=== PATIENT | male | born 1935 | race Caucasian/White ===

== ENCOUNTER 2018-12-16 08:29 | Observation (INO) | payer OTHER, MEDICAID ==
[~2018-12-16] VITALS: Ht 177.8 cm; Wt 90.7 kg
[2018-12-16 08:35] VITALS: BP_SYST 66
--- NOTE | 2018-12-16 08:35 | NUR ---
Patient to ER bed to gown for evaluation. Side rails up.
--- NOTE | 2018-12-16 08:38 | NUR ---
ER Dr. Lopez at bedside examining patient.
[2018-12-16] MEDS ORDERED: NACL 0.9% 1,000 ML IV ONE (08:45)
--- NOTE | 2018-12-16 08:45 | NUR ---
Patient presented to ER with C/O near syncope. Patient brought in by ISELA Negron. Patient presented to ER on gurney, ambulatory at home, skin pink, speaking in full sentences. Patient states he walked the dog, upon arriving home he was in the kitchen preparing breakfast when he felt weak, sat down on floor with diaphoresis, unable to provide assistance so she called 911. Patient states feeling has resolved at this time. Patient states he has Hx of Gastric Ulcer, Afib, Hypercholesterol.
[2018-12-16 09:04] LABS: BASOPHILS % (AUTO) 0.6 % (0.0-2.0); EOSINOPHILS # (AUTO) 0.1 K/uL (0.0-0.4); EOSINOPHILS % (AUTO) 1.2 % (0.0-4.0); HEMATOCRIT 41.5 % (36-54); HEMOGLOBIN 14.3 g/dL (14.0-18.0); LYMPHOCYTES # (AUTO) 0.8 K/uL (1.0-5.5); LYMPHOCYTES % (AUTO) 11.4 % (20.5-51.5); MEAN CORPUSCULAR HEMOGLOBIN 31 pg (27-31); MEAN CORPUSCULAR HGB CONC 35 % (32-36); MEAN CORPUSCULAR VOLUME 91 fL (79.0-98.0); MONOCYTES # (AUTO) 0.5 K/uL (0.0-1.0); MONOCYTES % (AUTO) 6.3 % (1.7-9.3); NEUTROPHILS # (AUTO) 5.9 K/uL (1.8-7.7); NEUTROPHILS % (AUTO) 80.5 % (40.0-70.0); PLATELET COUNT (AUTO) 136 K/uL (130-430); RED BLOOD CELL COUNT(AUTO) 4.56 MIL/uL (4.2-6.2); RED CELL DISTRIBUTION WIDTH 13.5 % (9.0-15.0); WHITE BLOOD COUNT (AUTO) 7.3 K/uL (4.8-10.8)
[2018-12-16 09:10] LABS: ANION GAP 7 (5-15); CALCIUM 9.3 mg/dL (8.4-11.0); CHLORIDE 106 mmol/L (98-107); CREATININE 1.24 mg/dL (0.55-1.30); GLUCOSE 148 mg/dL (70-99); SODIUM SERUM 140 mmol/L (136-145); UREA NITROGEN, BLOOD 20 mg/dL (8-21)
[2018-12-16 09:18] LABS: ALANINE AMINOTRANSFERASE 37 U/L (12-78); ALBUMIN 3.6 g/dL (3.4-4.8); ASPARTATE AMINOTRANSFERASE 23 U/L (10-37); LIPASE 78 U/L (73-393); TOTAL BILIRUBIN 1.2 mg/dL (0.0-1.0)
--- NOTE | 2018-12-16 09:30 | NUR ---
ER Dr. Lopez at bedside examining patient.
--- NOTE | 2018-12-16 09:40 | NUR ---
Anjana heck in [facility] - 12/16/18 at 0947 by SDEDTD HELEN Lopez at bedside examining patient.
[2018-12-16] MEDS ORDERED: KETOROLAC TROMETHAMINE 30 MG VIAL IVP ONE (10:00)
--- NOTE | 2018-12-16 11:00 | NUR ---
Attempted to help patient sit up to urinate. Patient was unable to bend at the waist so that he could stand and provide urine. Dr. Lopez was aadvised of the patients pain.
--- NOTE | 2018-12-16 11:04 | NUR ---
Patient to CT with radiology staff via [facility].
[2018-12-16 12:13] LABS: BILIRUBIN,URINE NEGATIVE (NEGATIVE); BLOOD, URINE NEGATIVE (NEGATIVE); CLARITY/URINE SL HAZY (CLEAR); COLOR,URINE YELLOW (YELLOW); GLUCOSE,URINE NEGATIVE (NEGATIVE); KETONES,URINE NEGATIVE (NEGATIVE); LEUKOCYTE ESTERASE ,URINE NEGATIVE (NEGATIVE); NITRITE, URINE NEGATIVE (NEGATIVE); PROTEIN URINE NEGATIVE (NEGATIVE); UROBILINOGEN,URINE 0.2 (0.2-1.0)
[2018-12-16] MEDS ORDERED: ASPIRIN 325 MG TABLET PO ONE (12:45)
[2018-12-16] MEDS ORDERED: SUCR1TAB78 PO (12:46)
--- NOTE | 2018-12-16 12:50 | NUR ---
Medication reconciliation completed with information provided by patient, daughter will bring in list of all medications.
[2018-12-16] MEDS ORDERED: SIMV5TAB59 PO (12:53)
[2018-12-16] MEDS ORDERED: NS 50 ML IV ONE (13:00)
--- NOTE | 2018-12-16 13:07 | NUR ---
Patient will be admitted to care of Dr. Julien. Admitted to Tele unit. Will go to room 107a. Belongings list completed. Summary report printed. Report will be given at bedside.
--- NOTE | 2018-12-16 13:08 | NUR ---
Transfer to Tele 106a via ACLS protocol. Licensed nurse present. IV present no signs or symptoms of infiltration.
--- NOTE | 2018-12-16 13:30 | NUR ---
admission notes rec patient from er with a dx of syncope via tadeo. awake alert with ivl on the l wrist intact. no infiltration noted. denies chest pain at this time. resp easy and unlabored. oriented re his surroundings with the call light, communication board. bed to the lowest position and side rails up and locked. call light withn reached and knows when to call for assistance.
[2018-12-16 14:01] VITALS: BP_SYST 110
[2018-12-16 15:49] VITALS: BP_SYST 95
--- NOTE | 2018-12-16 17:00 | NUR ---
rounds (late entry) resting comfortably at this time.
[2018-12-16] MEDS ORDERED: OSCD500 PO (17:07)
[2018-12-16] MEDS ORDERED: FINA5TAB3 PO (17:08)
[2018-12-16] MEDS ORDERED: ASPI-1153 PO (17:09)
[2018-12-16] MEDS ORDERED: PENT400T17 PO (17:11)
[2018-12-16] MEDS ORDERED: OMEP20CA11 PO (17:12)
[2018-12-16] MEDS ORDERED: NEU100 PO (17:13)
[2018-12-16] MEDS ORDERED: DORZ10DR10 EACH EYE (17:20)
[2018-12-16] MEDS ORDERED: CALC-940 PO (17:21)
--- NOTE | 2018-12-16 18:30 | NUR ---
late entry closing notes endorsed to night nurse karan ferrer patient. awaiting for dr vasquez to call re diet and pain med. call light within reached . bed to the lowest position and side rails up and locked. no sob noted.
--- NOTE | 2018-12-16 19:59 | NUR ---
Paged Dr. Julien s/w [facility]
[2018-12-16 20:00] VITALS: BP_SYST 105
--- NOTE | 2018-12-16 20:00 | NUR ---
ASSESSMENT Pt in bed, no acute distress noted at this time. Tolerating room air. IV lines patent with no infiltration noted. Safety precaution observed, call light within reach. Will continue to monitor Pt.
[2018-12-16] MEDS: NACL 0.9% 1,000 ML IV SCH (20:08)
[2018-12-16] MEDS: ACETAMINOPHEN 325 MG TABLET PO PRN (20:45)
[2018-12-17] VITALS: BP_SYST 110
--- NOTE | 2018-12-17 | NUR ---
Pt in bed, no acute distress noted at this time. Will continue to monitor Pt.
--- NOTE | 2018-12-17 01:30 | NUR ---
Spoke with MD regarding Pt's complaint of pain, orders received and will continue to monitor Pt.
[2018-12-17] MEDS ORDERED: MORPHINE 2 MG/ML INJ. SYRINGE IVP ONE (02:00)
[2018-12-17] MEDS ORDERED: MORPHINE 2 MG/ML INJ. SYRINGE ONE (02:05)
--- NOTE | 2018-12-17 06:23 | NUR ---
Pt in bed, no acute distress noted. IV lines and skin checked, will give report to oncoming RN.
[2018-12-17] MEDS: ACETAMINOPHEN 325 MG TABLET PO PRN ×2 (06:39→15:15)
[2018-12-17 08:00] VITALS: BP_SYST 100; BP_SYST 93; BP_SYST 98
--- NOTE | 2018-12-17 08:00 | NUR ---
initial notes rec patient awake alert with ivl on the l forearm. no infiltration noted. resp easy and unlabored. no osb noted. bed to the lowest position and side rails up and locked. call light within reached and knows when to call for assistance. waiting for dr vasquez and wants to go home.
--- NOTE | 2018-12-17 09:53 | NUR ---
Nutrition Update Harlan Scale 18 noted. Pt admitted for syncope. Diet: regular BMI: 28.7 RD to follow per nutrition care standards.
--- NOTE | 2018-12-17 09:58 | NUR ---
rounds seen by dr vasquez and will d/c patient today. denies any chest pain. no sob noted. bed to the lowest position and side rails up and locked.
[2018-12-17 11:09] VITALS: BP_SYST 115
[2018-12-17] MEDS: NACL 0.9% 1,000 ML IV SCH (11:24)
--- NOTE | 2018-12-17 12:00 | NUR ---
rounds pt eating lunch and with good appetite. call light within reached. no sob noted
[2018-12-17 12:30] VITALS: BP_SYST 90; BP_SYST 95
--- NOTE | 2018-12-17 13:30 | NUR ---
ambulation late entry due to patient care 11:00 Assisted patient with ambulation from room and around the station. estimated distance 100 feet. patient did not c/o light headedness and feeling faint.
[2018-12-17 14:58] VITALS: BP_SYST 115
--- NOTE | 2018-12-17 15:30 | NUR ---
closing notes pt was escorted out. refused to be wheeled and wants to walk. ivf was dc/d. explained re med rec and stated has julien with pmd on sunday. no sob noted. was picked up bu her daughter at the parking lot. no osb noted.
== END 2018-12-17 15:28 | disposition home or self-care (01) ==
LOC: SED 08:29 → STU 13:03
PROVIDERS: ADMIT Internal Medicine Hospice and Palliative Medicine; ATTEND Internal Medicine Hospice and Palliative Medicine
DX: R55 Syncope and collapse (principal); I10 Essential (primary) hypertension; N40.0 Benign prostatic hyperplasia without lower urinary tract symptoms
CPT/HCPCS: 36415; 70450; 71045; 74176; 80053; 81003; 83690; 84484; 85025; 93005; 93306; 96361 ×3; 96374; 99285; G0378 ×2; J1885; J2270; J7030